=== PATIENT | female | born 1945 | race Caucasian/White ===

== ENCOUNTER 2017-10-24 19:03 | Inpatient (IN) | payer MEDICARE ==
[~2017-10-24] VITALS: Ht 152.4 cm; Wt 100.6 kg
[2017-10-24] MEDS ORDERED: LOSARTAN/HCT1 TA2 PO (19:25)
[2017-10-24] MEDS ORDERED: TOPROL XL100 MG PO (19:26)
[2017-10-24] MEDS ORDERED: ZOCOR20 M1 PO (19:27)
[2017-10-24] MEDS ORDERED: PRILOSEC20 MG PO (19:27)
[2017-10-24] MEDS ORDERED: SINGULAIR10 MG PO (19:28)
[2017-10-24] MEDS ORDERED: ZYRTEC10 MG PO (19:29)
[2017-10-24] MEDS ORDERED: MELOXICAM7.5 MG PO (19:29)
[2017-10-24] MEDS ORDERED: NOVOLIN N100 UNIT/1 SC ×2 (19:30)
--- NOTE | 2017-10-24 19:30 | NUR ---
A/O F S/P NS FALL JPTA WITH MISALIGNMENT L FOOT AT THE L ANKLE.CIRC CK L FOOT WNL.PT HASVING LE4SS PAIN NOW,NO NAUSEA.
[2017-10-24] MEDS ORDERED: ASPIRIN81 MG PO (19:31)
[2017-10-24 20:33] LABS: HEMATOCRIT 42.1 % (37.0-47.0); IMMATURE GRANULOCYTES 0.2 % (0.0-1.0); MEAN CELL VOLUME 84.5 fL CALC (80.0-100.0); MEAN CORPUSCULAR HGB 28.1 pG CALC (26.0-32.0); MEAN CORPUSCULAR HGB CONC 33.3 g/L CALC (32.0-36.0); NEUT# 8.84 thou/uL (2.00-7.15); RED BLOOD COUNT 4.98 mill/uL (4.20-5.60); RED CELL DISTRI WIDTH 14.5 % (11.5-15.5)
[2017-10-24 20:42] LABS: ALBUMIN 3.9 g/dL (3.2-5.0); BILIRUBIN, TOTAL 0.3 mg/dL (0.0-1.4); CALCIUM 9.4 mg/dL (8.4-10.2); CREATININE 1.3 mg/dL (0.5-1.0); TOTAL PROTEIN 6.6 g/dL (6.3-8.2)
--- NOTE | 2017-10-24 21:00 | NUR ---
DR MOODY REDUCES L ANKLE DISLOCATION/FX AND APPLIED OCL SPLINT CIRC CK BY DR Berry ARE WNL.PT HASD LLE REELEV ON PILLOW AND IS COMFORTABLE
--- NOTE | 2017-10-24 22:28 | NUR ---
PT RETURNED FROM CT WITH EMESIS WHILE THERE DR Robina MAN
--- NOTE | 2017-10-24 22:37 | NUR ---
PT MEDICATED FOR N/V
--- NOTE | 2017-10-24 22:44 | NUR ---
ACCU CK 220 DR Quarles INFORMED
--- NOTE | 2017-10-24 23:17 | NUR ---
PHONE REPORT TO LAUREN MEHTA MS2
--- NOTE | 2017-10-24 23:20 | NUR ---
PT TRAnsportwed via st to ms 261 in improved stable condition
[2017-10-24 23:25] VITALS: BP 133/81
--- NOTE | 2017-10-24 23:25 | NUR ---
PT ARRIVED TO UNIT VIA STRETCHER WITH ER STAFF. TRANSFERRED SELF OVER TO BED WITH MINIMAL ASSITANCE. ALERT AND ORIENTED. DENIES PAIN CURRENTLY. RESPIRATIONS EVEN AND UNLABORED. OCL SPLINT TO LLE WITH LOULOU WRAP. CIRCULATION GOOD WITH CAP REFILL LESS THAN 3 SECONDS. ORIENTED TO ROOM AND CALL LIGHT SYSTEM. SAFETY MEASURES IN PLACE INCLUDING FALL PRECAUTIONS. CALL LIGHT WITHIN REACH.
--- NOTE | 2017-10-25 04:30 | NUR ---
PT REQUESTS BEDPAIN TO VOID. MORPHINE AND ZOFRAN GIVEN AT THIS TIME FOR PAIN TO LEFT ANKLE AND NAUSEA. IV FLUIDS INFUSING WITHOUT DIFFICULTY; IV SITE APPEARS HEALTHY. NO ACUTE CHANGES IN CONDITION NOTED. SAFETY MEASURES IN PLACE. CALL LIGHT WITHIN REACH.
[2017-10-25 04:41] VITALS: BP 133/53
[2017-10-25 05:31] LABS: CALCIUM 9.5 mg/dL (8.4-10.2); CREATININE 1.1 mg/dL (0.5-1.0); MAGNESIUM 1.8 mg/dL (1.6-2.3); POTASSIUM 4.9 mmol/l (3.5-5.1)
[2017-10-25 07:46] VITALS: BP 133/53
--- NOTE | 2017-10-25 07:57 | NUR ---
REPORT RECEIVED FROM RAMONITA AGUILAR. PT SITTING UPRIGHT IN BED. REPORTS MODERATE PAIN TO LEFT ANKLE. PAIN MEDICATIONS DISCUSSED. PT REQUESTS TO LET HER BREAKFAST "SETTLE" BEFORE TAKING ANY MEDS. REPORTING OF CONCERNS ENCOURAGED. PLAN OF CARE DSICUSSED. FALL PRECAUTIONS REINFORCED. CALL LIGHT REVIEWED AND IN REACH. PT STATES UNDERSTANDING.
--- NOTE | 2017-10-25 08:55 | NUR ---
PT REQUESTS PAIN MEDICATION AT THIS TIME. LORTAB PO ADMINISTERED. WILL MONITOR FOR EFFECTIVENESS.
--- NOTE | 2017-10-25 10:05 | NUR ---
PT REPORTS NO RELIEF OF PAIN FOR LORTAB PO. DR. LINDSAY NOTIFIED. ORDER FOR INCREASE IN LORTAB DOSE. ADDITIONAL LORTAB ADMINISTERED AT THIS TIME. WILL CONTINUE TO MONITOR.
--- NOTE | 2017-10-25 11:00 | NUR ---
PT REPORTS LITTLE RELIEF FROM RECENT PAIN MEDICATION. REPOSITIONED. ICE PACK PROVIDED. LEFT FOOT ELEVATED ON 2 PILLOW.
--- NOTE | 2017-10-25 12:11 | NUR ---
PT REPORTS ITCHING ALL OVER WHOLE BODY. NO RASH NOTED. NO SOB. DR. LINDSAY NOTIFIED.
--- NOTE | 2017-10-25 13:55 | NUR ---
PT REPORTS MODERATE SEVERE PAIN TO ELFT ANKLE, PERCOCET PO ADMINISTERED PER ORDER. WILL CONTINUE TO MONTIOR.
--- NOTE | 2017-10-25 14:39 | NUR ---
PT REPORTS COMPLETE RELIEF OF PAIN. STATES "I THINK THAT PILL WORKS THE BEST FOR ME."
[2017-10-25 16:00] VITALS: BP 99/55
--- NOTE | 2017-10-25 18:10 | NUR ---
PT SITTING UPRIGHT IN BED. DENIES PAIN. AT BEDSIDE. CALL LIGHT WITHIN REACH.
[2017-10-25 19:03] VITALS: BP 117/72
--- NOTE | 2017-10-25 19:30 | NUR ---
BEDSIDE REPORT RECEIVED FROM JANINE GILL. PT UP TO BSC AT THIS TIME TO VOID. 2 PERSON ASSIST. STATES THAT PAIN IS COMING BACK TO LEFT ANKLE. PERCOCET GIVEN. CIRCULATION TO TOES IS GOOD; CAP REFILL LESS THAN 3 SECONDS. PT CAN MOVE TOES AND HAS GOOD SENSATION. PLAN OF CARE DISCUSSED INCLUDING PLANS FOR ORIF PROCEDURE ON THURSDAY. IV SITE APPEARS HEALTHY AND FLUSHES. ALL OTHER ASSESSMENT FINDINGS WNL. CALL LIGHT SYSTEM REVIEWED AND IN REACH.
--- NOTE | 2017-10-26 00:16 | NUR ---
PT ASLEEP AT THIS TIME. NO SIGNS OF DISTRESS NOTED. LLE ELEVATED ON PILLOWS. CALLS FOR ASSISTANCE NEEDED. SAFEY MEASURES IN PLACE. CALL LIGHT WITHIN REACH.
--- NOTE | 2017-10-26 01:44 | NUR ---
PT C/O PAIN 05/18 TO LEFT ANKLE. PECOCET GIVEN AND PT REPOSITIONED ONTO RIGHT SIDE. ICE APPLIED TO ANKLE. NO FUTHER REQUESTS AT THIS TIME.
--- NOTE | 2017-10-26 04:34 | NUR ---
PT REQUESTS HER ZERTEC FOR ITCHING ON HANDS/BETWEEN FINGERS. RECEIVED ZERTEC ONCE ON DAY SHIFT X 1 DOSE WITH GOOD EFFECT.
[2017-10-26 05:00] VITALS: BP 139/79
[2017-10-26 05:18] LABS: ALBUMIN 3.6 g/dL (3.2-5.0); CALCIUM 9.2 mg/dL (8.4-10.2); CREATININE 1.2 mg/dL (0.5-1.0); POTASSIUM 4.2 mmol/l (3.5-5.1)
[2017-10-26 08:06] VITALS: BP 134/37
--- NOTE | 2017-10-26 08:06 | NUR ---
INTRODUCED SELF TO PT AND SPOUSE. ASSESSED PT AT THIS TIME. VITAL SIGNS WITHIN NORMAL LIMITS. RESPIRATIONS EVEN AND UNLABORED LUNG SOUNDS IN RLL AND LLL SLIGHTLY DIMINISHED. PTS LT FOOT IS IN OCL SPLINT AND REMAINS INTACT WITH LOULOU WRAP APPEARS WARM/DRY NO EDEMA NOTICED. PT DOES HAVE SENSATION TO LT TOES AND PEDAL PULSE IS STRONG. PAIN LEVEL IS 3-4/10 TO LLE THROBBING. LLE ELEVATED FOR COMFORT AND TO LOWER SWELLING TO ANKLE. WILL CONTINUE TO MONITOR.
--- NOTE | 2017-10-26 08:45 | NUR ---
PT ASSESSMENT IS COMPLETED: IN TO VISIT WITH PT. DRESSING ON LEFT ANKLE IS CDI. IV SITE IS FREE FROM REDNESS OR EDEMA. FAMILY IN THE ROOM. NO DISTRESS NOTED. CONTINUE TO OBSERVE AND MONITOR.
--- NOTE | 2017-10-26 10:00 | NUR ---
ASSISSTED PT TO BSC FOR POSSIBLE BM WAS UNSUCCESSFUL AT THIS TIME. ASSISTED BACK TO BED WITH ASSISTANCE FROM ANOTHER SPN. INSTRUCTED PT ON USE OF INCENTIVE SPIROMETER WITH DIRECTIONS TO DO EXERCISE 10 TIMES EVERY HOUR. PT COMPLAINTS OF PAIN 5-6/10 TO LLE WITH THROBBING. ELEVATED AND APPLIED ICE PACK FOR COMFORT. MACKENZIE SHIPMAN MADE AWARE OF PAIN. WILL CONTINUE TO MONITOR.
--- NOTE | 2017-10-26 12:00 | NUR ---
PT HAS BEEN UP ON THE BSC WITH NO DISTRESS NOTED. IV SITE IS FREE FROM REDNESS OR EDEMA. CONTINUE TO OSBERVE AND MONITOR.
--- NOTE | 2017-10-26 16:00 | NUR ---
PT HAS BEEN IN THE CHAIR, AND VISITING WITH FAMILY. NO DISTRESS NOTED. IV SITE IS FREE FROM REDNESS OR EDEMA. CONTINUE TO OBSERVE AND MONITOR.
[2017-10-26 16:32] VITALS: BP 136/59
[2017-10-26 19:00] VITALS: BP 107/61
--- NOTE | 2017-10-26 20:50 | NUR ---
PT RESTING IN SEMI FOWLERS POSITION WATCHING TV;PT COMPLAINS OF LEFT LOWER LEG PAIN RATING 7/10 ON THE PAIN SCALE AND REQUESTS PAIN MEDICATION;PT MEDICATED WITH PRN PERCOCET 1 COMBO;ASSESSMENT COMPLETED;#20G TO RAC FLUSHED AND PATENT;DRESSING TO LEFT ANKLE CDI AND ELEVATED ON 2 PILLOWS;I.S. AT BEDSIDE AND PT EDUCATED ON USING X10 PER/HR WHILE AWAKE,PT VERBALIZES UNDERSTANDING;RESPIRATIONS EVEN AND UNLABORED ON RA;CLEAR LUNG SOUNDS NOTED;PERRLA;PT EDUCATED ON NPO DIET STATUS AT 0630 IN THE MORNING AND VERBALIZES UNDERSTANDING;PT A&O X3;SAFETY PRECAUTIONS REINFORCED AND PT VERBALIZES UNDERSTANDING;PT VOICES NO OTHER NEEDS OR CONCERNS AT THIS TIME;CALL LIGHT IN REACH;WILL CONTINUE TO MONITOR
[2017-10-27] VITALS (10 sets, daily range): BP systolic 100–148; BP diastolic 40–69
--- NOTE | 2017-10-27 01:00 | NUR ---
PT CALLS WRITTER COMPLAINING OF INTENSE PAIN TO LEFT LOWER LEG RATING 10/10 ON THE PAIN SCALE;PT MEDICATED WITH DILAUDID 1MG IVP;PT ALSO COMPLAINING OF ITCHING STATING "I ALWAYS TAKE MY ZERTEC" TO BE NOTIFIED OF REQUEST;DRESSING TO LEFT ANKLE CDI;CAP REFILL LESS THAN 3 SECONDS WITH GOOD SENSATION;RESPIRATIONS EVEN AND UNLABORED ON RA;CALL LIGHT IN REACH;WILL CONTINUE TO MONITOR
--- NOTE | 2017-10-27 01:35 | NUR ---
NOTIFED OF PTS COMPLAINT OF CONSTANT ITCHING;NEW ORDER RECEIVED
--- NOTE | 2017-10-27 01:55 | NUR ---
PT REPORTS THAT PAIN LEVEL HAS DECREASED TO 0/10;DAILY ZERTEC PO ADMINISTERED AT THIS TIME PER MD;PT VOICES NO OTHER NEEDS;PT EDUCATED TO CALL FOR ASSISTANCE IF NEEDED;CALL LIGHT IN REACH;WILL CONTINUE TO MONITOR
--- NOTE | 2017-10-27 04:00 | NUR ---
PT APPEARS TO BE SLEEPING IN SUPINE POSITION;NO S/S OF DISTRESS NOTED;LEFT ANKLE ELEVATED ON X2 PILLOWS;RESPIRATIONS EVEN AND UNLABORED ON RA;FALL PRECAUTIONS IN PLACE;CALL LIGHT IN REACH;WILL CONTINUE TO MONITOR
[2017-10-27 05:18] LABS: HEMATOCRIT 40.5 % (37.0-47.0); HEMOGLOBIN 12.9 g/dl (12.0-16.0); IMMATURE GRANULOCYTES 0.3 % (0.0-1.0); MEAN CELL VOLUME 87.7 fL CALC (80.0-100.0); MEAN CORPUSCULAR HGB 27.9 pG CALC (26.0-32.0); MEAN CORPUSCULAR HGB CONC 31.9 g/L CALC (32.0-36.0); NEUT# 4.76 thou/uL (2.00-7.15); RED BLOOD COUNT 4.62 mill/uL (4.20-5.60); RED CELL DISTRI WIDTH 14.6 % (11.5-15.5)
[2017-10-27 05:45] LABS: CREATININE 1.3 mg/dL (0.5-1.0); MAGNESIUM 2.2 mg/dL (1.6-2.3); POTASSIUM 4.8 mmol/l (3.5-5.1)
--- NOTE | 2017-10-27 07:19 | NUR ---
REPORT RECEIVED FROM RAMONITA MCGHEE. PT SITTING UPRIGHT IN BED. NPO STATUS DISCUSSED. WATER REMOVED FROM BEDSIDE. PT REPORTS MILD LEFT ANKLE PAIN. PAIN MEDICATION SCHEDULES REVIEWED. FALL PRECAUTIONS REINFORCED. PLAN FOR SX AT 1500 REVIEWED. CALL LIGHT REVIEWED AND IN REACH. PT STATES UNDERSTANDING.
[2017-10-27 10:37] LABS: URINE BILIRUBIN - DIPSTICK NEGATIVE (NEGATIVE); URINE BLOOD DIPSTICK NEGATIVE (NEGATIVE); URINE COLOR YELLOW; URINE GLUCOSE - DIPSTICK NEGATIVE (NEGATIVE); URINE KETONE TRACE mg/dL (NEGATIVE); URINE LEUK ESTERASE NEGATIVE (NEGATIVE); URINE NITRITE - DIPSTICK NEGATIVE (Negative); URINE PH 5.5 (4.5-8.0); URINE PROTEIN - DIPSTICK NEGATIVE (NEG-TRACE); URINE UROBILINOGEN - DIPSTICK 0.2 E.U./dL (0.2)
[2017-10-27 10:38] LABS: URINE CLARITY CLEAR
--- NOTE | 2017-10-27 11:05 | NUR ---
PT LEFT FLOOR VIA STRETCHER ACCOMPANIED BY OR STAFF X 1. STABLE AT THIS TIME.
--- NOTE | 2017-10-27 15:19 | NUR ---
PT ARRIVED TO FLOOR @ 1458 VIA STRETCHER ACCOMPANIED BY OR STAFF X 2. ASSISTED BY PULL-OVER TO BED. PT DROWSY. SNORING. FALL PRECAUTIONS REINFORED. AT BEDSIDE. CALL LIGHT REVIEWED AND IN REACH. POST-OP VS IN PROGRESS ORDERED.
--- NOTE | 2017-10-27 18:36 | NUR ---
PT REPORTS 7 ON PAIN SCALE. ALERT AT THIS TIME. REPORTS TOLERATING DINNER. PERCOCET PO ADMINISTERED. WILL MONITOR FOR EFFECTIVESS. PT PLACED ON BEDPAN AT THIS TIME.
--- NOTE | 2017-10-27 18:41 | NUR ---
PT VOIDED 300 ML CLEAR YELLOW URINE VIA BEDPAN.
--- NOTE | 2017-10-27 19:30 | NUR ---
REPORT RECEIVED FROM JANINE GILL;PT RESTING IN SEMI FOWLERS POSITION;VS BEING OBTAINED BY SOHA MITTAL;PT ALERT AND ORIENTED;POC DISCUSSED AND PT VERBALIZES UNDERSTANDING;LEFT ANKLE ELEVATED ON 2 PILLOWS,ICE PACK IN PLACE;PT EDUCATED TO CALL FOR ASSISTANCE IF NEEDED;WILL CONTINUE TO MONITOR
--- NOTE | 2017-10-27 21:30 | NUR ---
PT APPEARS TO BE SLEEPING IN BED;RESPIRATIONS EVEN AND UNLABORED ON 02 @2L NC;WOKE PT TO COMPLETED ASSESSMENT;PT VOICES COMPLAINT OF PAIN TO HER LEFT ANKLE RATING 4/10 ON THE PAIN SCALE;PT RE-EDUCATED ON PAIN MEDICATION SCHEDULE AND VERBALIZES UNDERSTANDING;I.S. AT BEDSIDE AND GOAL SET TO 1000,PT DEMONSTRATED USE;SCD NOTED TO RIGHT LEG;LEFT LEG ELEVATED ON X2 PILLOWS;DRESSSING REMAINS CDI;CAP REFILL LESS THAN 3 SECONDS,GOOD SENSATION NOTED;#22G TO LEFT HAND INFUSING NS @ 100ML/HR;PT TOLERATING PO FLUIDS WITH EASE;VOIDED 100CC OF YELLOW/CLEAR URINE;PT DENIES ANY OTHER NEEDS;FALL PRECAUTIONS REINFORCED;CALL LIGHT IN REACH;WILL CONTINUE TO MONITOR
[2017-10-28 00:10] VITALS: BP 149/72
--- NOTE | 2017-10-28 00:15 | NUR ---
PT COMPLAINS OF LEFT LOWER LEG PAIN RATING 9/10 ON THE PAIN SCALE AND REQUESTS PAIN MEDICATION;PT MEDICATED WITH PRN PERCOCET 2 COMBO;CAP REFILL REMAINS LESS THAN 3 SECONDS WITH GOOD SENSATION;PO FLUIDS ENCOURAGED;LEFT LEG ELEVATED ON 2 PILLOWS,SCD IN PLACE;WILL CONTINUE TO MONITOR
[2017-10-28 04:00] VITALS: BP 150/79
--- NOTE | 2017-10-28 04:20 | NUR ---
PT APPEARS TO BE SLEEPING WITH EYES CLOSED;WOKE PT TO OBTAIN VS AND ADMINISTER SCHEDULED MEDICATION;PT VOIDED 400CC OF CLEAR/YELLOW URINE;IV SITE PATENT;LEFT LEG ELEVATED ON X2 PILLOWS;PT SLIGHTLY CONFUSED,DROWSY;REPEATING QUESTIONS;ALL QUESTIONS ANSWERED AT THIS TIME;PT COMPLAINS OF LEFT LOWER LEG PAIN AND IS RE-EDUCATED ON MEDICATION SCHEDULE,PT VERBALIZES UNDERSTANDING;RE-POSITIONED IN BED;FALL PRECAUTIONS IN PLACE;WILL CONTINUE TO MONITOR
[2017-10-28 06:19] LABS: HEMATOCRIT 37.6 % (37.0-47.0); IMMATURE GRANULOCYTES 0.4 % (0.0-1.0); MEAN CELL VOLUME 88.9 fL CALC (80.0-100.0); MEAN CORPUSCULAR HGB 28.4 pG CALC (26.0-32.0); MEAN CORPUSCULAR HGB CONC 31.9 g/L CALC (32.0-36.0); NEUT# 7.48 thou/uL (2.00-7.15); RED BLOOD COUNT 4.23 mill/uL (4.20-5.60); RED CELL DISTRI WIDTH 14.7 % (11.5-15.5)
[2017-10-28 06:28] LABS: CALCIUM 8.4 mg/dL (8.4-10.2); CHOLESTEROL HDL RATIO 2.7 (<4.4 (CALC)); CREATININE 1.1 mg/dL (0.5-1.0); MAGNESIUM 2.2 mg/dL (1.6-2.3); POTASSIUM 4.8 mmol/l (3.5-5.1)
--- NOTE | 2017-10-28 06:45 | NUR ---
PT LAYING IN BED WITH EYES CLOSED, PT APPEARS TO BE SLEEPING. WILL CONTINUE TO MONITOR.
[2017-10-28 07:06] VITALS: BP 133/62
--- NOTE | 2017-10-28 07:30 | NUR ---
SHIFT CHANGE REPORT FROM LUTHER MCGHEE AWAKE BUT DISORIENTED TO PLACE AND TIME, C/O L. LEG PAIN @ 8/10, LEG ELEVATED ON PILLOWS WITH AND DRESSING IN PLACE, WILL CONTINUE TO MONITOR AND ADDRESS NEEDS.
--- NOTE | 2017-10-28 08:00 | NUR ---
PT STATED HER PAIN'S A 10; PT MEDICATED BY RN, GENO AND MYSELF. WILL CONTINUE TO MONITOR. CALL LIGHT IN REACH.
--- NOTE | 2017-10-28 08:00 | NUR ---
SPOUSE IN ROOM, PT CRYING STATING LEG IS HURTING WITH PAIN LEVEL @ 10/10, SPOUSE IRATE AT THIS TIME STATING PT SOMEONE ELSE SHOULD BE AVAILABLE TO GIVE MEDS WHEN PT NEEDS IT. REASSURED PT AND SPOUSE NEEDS WILL BE ADDRESSED IN TIMELY MANNER AND STAFF DOES NOT IGNORE NEEDS OF ANY PT BUT STAFF IS ALSO BUSY WITH OTHERS AND WILL PRIORITISE EACH PT'S NEEDS. BOTH PT AND SPOUSE REQUEST TO HAVE PAIN MEDS ROUND CLOCK. PT ALSO GETS GROGGY AND SLEEPS AFTER MEDS GIVEN BUT STARTS ASKING FOR SOON SHE AWAKENS. EDUCATION ON SE OF NARCOTICS GIVEN AND COUPLE STATED UNDERSTANDING, WILL CONTINUE TO MONITOR AND ADDRESS NEEDS.
--- NOTE | 2017-10-28 09:06 | NUR ---
PT REPORTS 2/10 ON PAIN SCALE. PT TOLERATED B/F ATE 100%; ALERT AT THIS TIME; CALL LIGHT IN REACH, WILL CONTINUE TO MONITOR.
--- NOTE | 2017-10-28 10:00 | NUR ---
PT WAS ASSISTED TO BE BSC WITH HELP FROM PT AND MYSELF. PT VOIDED 100CC CLEAR YELLOW URINE. PT ASSISTED TO THE RECLINER, PT DID ORAL CARE. CALL LIGHT IN REACH. MITRA MORALES IN WITH PT. WILL CONTINUE TO MONITOR.
--- NOTE | 2017-10-28 11:00 | NUR ---
ASSISTED PT WITH A SPONGE BATH, SOME EDEMA NOTED ON RF. BOTH FEET ELEVATED IN THE RECLINER. PT REPORT 3/10 PAIN SCALE. FAMILY MEMBER AT BEDSIDE. ADVISE PT TO CALL FOR ASSISTANCE IF NEEDED.
--- NOTE | 2017-10-28 12:00 | NUR ---
SITTING IN RECLINER HAVING MEAL, PAIN WELL CONTROLLED, SPOUSE IN ROOM, CALL CARDENAS IN REACH.
--- NOTE | 2017-10-28 12:45 | NUR ---
NEW ORDER RECEIVED. PT WAS CLEARED TO RESUME P.T. SEEN PT RESTING IN BED WITH L LEG IN ELEVATED POSITION. PT WAS ABLE TO ROLL AND SCOOT WITH MODIFIED INDEPENDENCE. SUPINE TO SIT WITH MIN A OF 1. PT REPORTS FEELING A LITTLE DIZZY IN SITTING POSITION. TOOK A MINUTE IN STATIC SITTING BEFORE STANDING UP WITH CGA AND VERBAL CUES. PT TRANSFERRED FROM BED TO BEDSIDE COMMODE WITH RW, CGA AND VERBAL CUES. THEN, FROM COMMODE TO RECLINER ~5 STEPS AWAY. PT APPEARED TO BE HAVING DIFFICULTY PUTTING WEIGHT ON B ARMS HOLING ONTO THE RW. REQUIRED REST PERIODS TO COMPLETE THE ACTIVITY. NO COMPLAINTS VOICED AT THE END OF TX. LEFT PT COMFORTABLY SITTING IN THE RECLINER WITH LEG REST IN ELEVATED POSITION. CALL CARDENAS WITHIN REACH.
[2017-10-28 14:53] VITALS: BP 112/60
--- NOTE | 2017-10-28 16:00 | NUR ---
RESTING IN BED, NO C/O DISCOMFORT, CALL CARDENAS IN REACH.
[2017-10-28 19:55] VITALS: BP 127/69
--- NOTE | 2017-10-28 21:20 | NUR ---
PT APPEARS TO BE RESTING IN HIGH FOWLERS POSITION;PT DROWSY,ALERT TO PERSON AND PLACE;WILL ORIENT NEEDED;RESPIRATIONS EVEN AND UNLABORED ON RA;ASSESSMENT COMPLETED;PT EDUCATED ON PAIN MEDICATION SCHEDULE;CURRENT PAIN LEVEL 2/10;LEFT FOOT ELEVATED ON X2 PILLOWS WITH DRESSING IN PLACE;DRESSING REMAINS CDI;CAP REFILL LESS THAN 3 SECONDS WITH GOOD SENSATION NOTED;SCD TO RIGHT LEG;I.S AT BEDSIDE AND PT DEMONSTARTED USE,GOAL SET TO 1000;CLEAR LUNG SOUNDS;#22G TO LEFT HAND FLUSHED AND PATENT;PT VOICES NO COMPLAINTS OR CONCERNS;FALL PRECAUTIONS IN PLACE WITH CALL LIGHT IN REACH;WILL CONTINUE TO MONITOR
[2017-10-28 23:15] VITALS: BP 114/73
--- NOTE | 2017-10-28 23:15 | NUR ---
PT SLEEPING WITH EYES CLOSED;PT WAKES TO VERBAL STIMULI;VS OBTAINED;INITIAL 02 SATS @ 88% ON RA;INSTRUCTED PT ON PURSED LIP BREATHING;O2 INCREASED TO 90%;BEDSIDE OXYGEN APPLIED INCREASING O2 TO 98%;PT HARD TO KEEP AWAKE,ALERT TO TIME AND PLACE;VOICES NO COMPLAINTS AT THIS TIME;WILL CONTINUE TO MONITOR CLOSELY
--- NOTE | 2017-10-29 03:50 | NUR ---
PT SITTING ON BEDSIDE COMMODE ATTEMPTING TO HAVE A BM;PT COMPLAINS OF LEFT LOWER LEG PAIN RATING 10/10 ON THE PAIN SCALE AND REQUESTING PAIN MEDICATION;PT MEDICATED WITH PERCOCET 2 COMBO;RESPIRATIONS EVEN AND UNLABORED ON 02 @ 2L;DRESSING REMAINS INTACT;WILL CONTINUE TO MONITOR FOR EFFECT
[2017-10-29 04:35] VITALS: BP 114/66
[2017-10-29 05:33] LABS: CALCIUM 8.6 mg/dL (8.4-10.2); CREATININE 1.4 mg/dL (0.5-1.0); POTASSIUM 4.5 mmol/l (3.5-5.1)
[2017-10-29 05:35] LABS: HEMATOCRIT 35.7 % (37.0-47.0); HEMOGLOBIN 11.3 g/dl (12.0-16.0); IMMATURE GRANULOCYTES 1.2 % (0.0-1.0); MEAN CELL VOLUME 88.8 fL CALC (80.0-100.0); MEAN CORPUSCULAR HGB 28.1 pG CALC (26.0-32.0); MEAN CORPUSCULAR HGB CONC 31.7 g/L CALC (32.0-36.0); NEUT# 6.99 thou/uL (2.00-7.15); RED BLOOD COUNT 4.02 mill/uL (4.20-5.60); RED CELL DISTRI WIDTH 14.9 % (11.5-15.5)
[2017-10-29 08:50] VITALS: BP 96/32
--- NOTE | 2017-10-29 08:50 | NUR ---
ASSESSMENT IS COMPLETED: IV SITE IS FREE FROM REDNESS OR EDEMA. DRESSING ON LEFT FOOT IS CDI. PT HAS PIVOTED ON THE BSC. CONTINUE TO OBSERVE AND MONITOR.
[2017-10-29 10:45] VITALS: BP 139/29
--- NOTE | 2017-10-29 10:45 | NUR ---
BP WAS RECHECKED 134/29. PT HAD BEEN USING THE BSC. IV SITE IS FREE FROM REDNESS OR EDEMA.
--- NOTE | 2017-10-29 12:30 | NUR ---
BP WAS RECHECKED AGAIN NOW IS 108/47. CONTINUE TO OSBERVE AND MONITOR.
[2017-10-29 13:00] VITALS: BP 108/47
--- NOTE | 2017-10-29 14:02 | NUR ---
Pt. seen this PM for functional activity of tranfer training, gait belt and non skid socks applied. Reviewed with pt. NWB on left LE. With HOB elevated pt. only required min. assist for advancing left LE off bed, pt. used bed rails to assist with scooting. Sit to stand done with min. assist x1 to walker, v.c.'s provided for UE push off from bed. Pt. advanced right LE by taking small step and at times by sliding foot on floor. Pt. requested use of BSC and was assisted with same, v.c.'s provided for reaching back for armrests to slowy lower herself onto BSC. Sit to stand done a second time with walker and CGA x1, pt. advanced right LE by taking small steps back to bedside. Stand to sit done with light CGA x1, however pt. then required mod. assist x1 to bring both LE's back up to bed. Once in bed pt. instructed on bed mobility for scooting higher in bed. Left LE was elevated with pillow, HOB was elevated, call light reviewed and left within reach. Pt. was without concerns. Pt. compliant of NWB on left LE during treatment.
[2017-10-29 15:34] VITALS: BP 141/50
--- NOTE | 2017-10-29 16:00 | NUR ---
PT IS RELAXING IN BED WITH NO DISTRESS NOTED. TRANSFERRED TO THE CHAIR NICELY. IV SITE IS FREE FROM REDNESS OR EDEMA. CONTINUE TO OSBERVE AND MONIOTR.
--- NOTE | 2017-10-29 18:09 | NUR ---
INFORMED FAMILY AND PT RE: TIME FRAME FOR THE PT TO BE GOING TO [facility].
--- NOTE | 2017-10-29 19:34 | NUR ---
PLACED CALL TO [facility] AND GAVE REPORT TO KATERIN MEHTA. INFORMED ABOUT BP NUMBERS AND NO ORDERS FOR THE DRESSING CHANGE. GAVE PHONE NUMBERS FOR AND . INFORMED MITRA MORALES RE: THE CONCERN OF THE BP. PT WAS TRANSFERRED VIA [employer] WITH ALL PAPERS AND FAMILY HAS ALL BELONGINGS. CONTINUE TO OSBERVE AND MONITOR.
== END 2017-10-29 19:00 | DRG 493 ==
LOC: ED 19:03 → ED-I 22:00 → ED 22:18 → MS2 22:19
PROVIDERS: Emergency Medicine; Nurse Practitioner Family; ADMIT Internal Medicine; ATTEND Internal Medicine
PROC: 0SSGXZZ Reposition Left Ankle Joint, External Approach (ICD-10-PCS; principal; 2017-10-25)
PROC: 0QSH04Z Reposition Left Tibia with Internal Fixation Device, Open Approach (ICD-10-PCS; 2017-10-27)
PROC: 0QSK04Z Reposition Left Fibula with Internal Fixation Device, Open Approach (ICD-10-PCS; 2017-10-27)
PROC: 0SSG0ZZ Reposition Left Ankle Joint, Open Approach (ICD-10-PCS; 2017-10-27)
DX: S82.852A Displaced trimalleolar fracture of left lower leg, initial encounter for closed fracture (principal); Z68.41 Body mass index [BMI] 40.0-44.9, adult; N17.9 Acute kidney failure, unspecified; E11.65 Type 2 diabetes mellitus with hyperglycemia; F01.50 Vascular dementia, unspecified severity, without behavioral disturbance, psychotic disturbance, mood disturbance, and anxiety; E78.5 Hyperlipidemia, unspecified; I10 Essential (primary) hypertension; I16.0 Hypertensive urgency; J30.2 Other seasonal allergic rhinitis; K59.03 Drug induced constipation; T40.605A Adverse effect of unspecified narcotics, initial encounter; W10.8XXA Fall (on) (from) other stairs and steps, initial encounter; Z79.4 Long term (current) use of insulin
CPT/HCPCS: G0378